=== PATIENT | female | born 1980 | race African-American/Black ===

== ENCOUNTER 2021-07-28 10:42 | Outpatient (CLI) | payer BC | END 2021-07-28 10:43 | disposition home or self-care (01) | LOC: CSHWCC 10:42 | PROVIDERS: ATTEND Nurse Practitioner Family | DX: S81.851S Open bite, right lower leg, sequela (principal); L97.812 Non-pressure chronic ulcer of other part of right lower leg with fat layer exposed; R60.0 Localized edema; K51.00 Ulcerative (chronic) pancolitis without complications; I87.2 Venous insufficiency (chronic) (peripheral); G89.11 Acute pain due to trauma | CPT/HCPCS: 99213; G0463 ==

== ENCOUNTER 2022-07-25 08:20 | Outpatient (CLI) | payer BC | END 2022-07-25 08:21 | disposition home or self-care (01) | LOC: CSHWCC 08:20 | PROVIDERS: ATTEND Nurse Practitioner Family | DX: S91.301D Unspecified open wound, right foot, subsequent encounter (principal) | CPT/HCPCS: 97607; 99213; G0463 ==

== ENCOUNTER 2022-08-01 09:06 | Outpatient (CLI) | payer BC | END 2022-08-01 09:07 | disposition home or self-care (01) | LOC: CSHWCC 09:06 | PROVIDERS: ATTEND Nurse Practitioner Family | DX: S91.301D Unspecified open wound, right foot, subsequent encounter (principal) | CPT/HCPCS: 29581; 97607 ==

== ENCOUNTER 2022-08-08 15:33 | Outpatient (CLI) | payer BC | END 2022-08-08 15:34 | disposition home or self-care (01) | LOC: CSHWCC 15:33 | PROVIDERS: ATTEND Nurse Practitioner Family | DX: S91.301D Unspecified open wound, right foot, subsequent encounter (principal) | CPT/HCPCS: 29581; 97607 ==

== ENCOUNTER 2022-08-14 08:09 | Outpatient (CLI) | payer BC | END 2022-08-14 08:10 | disposition home or self-care (01) | LOC: CSHWCC 08:09 | PROVIDERS: ATTEND Nurse Practitioner Family | DX: S91.301D Unspecified open wound, right foot, subsequent encounter (principal); R60.0 Localized edema ==

== ENCOUNTER 2022-08-22 15:20 | Outpatient (CLI) | payer BC | END 2022-08-22 15:21 | disposition home or self-care (01) | LOC: CSHWCC 15:20 | PROVIDERS: ATTEND Nurse Practitioner Family | DX: S91.301D Unspecified open wound, right foot, subsequent encounter (principal); R60.0 Localized edema ==

== ENCOUNTER 2022-08-29 08:33 | Outpatient (CLI) | payer BC | END 2022-08-29 08:34 | disposition home or self-care (01) | LOC: CSHWCC 08:33 | PROVIDERS: ATTEND Nurse Practitioner Family | DX: S91.301D Unspecified open wound, right foot, subsequent encounter (principal); R60.0 Localized edema | CPT/HCPCS: 99213; G0463 ==

== ENCOUNTER 2022-10-19 08:13 | Outpatient (CLI) | payer BC | END 2022-10-19 08:14 | disposition home or self-care (01) | LOC: CSHWCC 08:13 | PROVIDERS: ATTEND Nurse Practitioner Family | DX: S91.301D Unspecified open wound, right foot, subsequent encounter (principal); R60.0 Localized edema | CPT/HCPCS: 99212; G0463 ==